=== PATIENT | female | born 1995 | race Caucasian/White ===

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

== ENCOUNTER 2017-02-28 14:46 | Emergency (ER) | payer BC ==
[~2017-02-28] VITALS: Ht 177.8 cm; Wt 56.7 kg
[2017-02-28 15:06] LABS: URINE BLOOD TRACE (Negative); URINE COLOR YELLOW; URINE GLUCOSE-RANDOM* NEGATIVE (Negative); URINE KETONES 2+ (Negative); URINE LEUKOCYTES-REFLEX NEGATIVE (Negative); URINE PROTEIN (DIPSTICK) 1+ (Negative); URINE UROBILINOGEN 0.2 E.U./dl (0.2-1.0)
[2017-02-28 15:07] LABS: ICTOTEST (BILI CONFIRMATORY) Negative (Negative); URINE BILIRUBIN NEGATIVE (Negative)
[2017-02-28 15:14] LABS: HYALINE CASTS 0-3 Few /LPF (None Seen); SQUAMOUS 0-3 Few /LPF (0-3)
[2017-02-28 15:15] LABS: CRYSTALS None Seen /LPF (None Seen); URINE RBC None Seen /HPF (0-2); URINE WBC-REFLEX None Seen /HPF (0-5)
[2017-02-28 15:46] LABS: HEMATOCRIT 42.3 % (37.0-47.0); HEMOGLOBIN 14.6 gm/dL (12.0-15.0); MCH 28.5 pg (26.0-34.0); MCHC 34.5 g/dL (28.0-37.0); MCV 82.5 fL (80.0-100.0); PLATELET COUNT 193 thou/uL (150-400); RBC 5.13 mil/uL (4.20-5.00); RDW 13.4 % (10.5-14.5); WBC 8.8 thou/uL (4.0-11.0)
[2017-02-28 15:47] LABS: MANUAL DIFF YES
[2017-02-28 15:53] LABS: CALCIUM 9.7 mg/dL (8.5-10.1); CREATININE 0.8 mg/dL (0.6-1.0); POTASSIUM 3.4 mmol/L (3.5-5.1)
[2017-02-28 16:07] LABS: ABSOLUTE NEUTROPHILS 7.8 thou/uL (1.4-8.2); TOTAL CELL COUNT 100
[2017-02-28] MEDS ORDERED: PHENERGAN 25 MG25 M1 PO (16:27)
[2017-02-28] MEDS ORDERED: ONDANSETRON HCL4 M2 PO (16:37)
[2017-02-28 17:09] VITALS: BP 106/66
== END 2017-02-28 17:34 | disposition home or self-care (01) ==
LOC: ER 14:46
PROVIDERS: Emergency Medicine; Physician Assistant
DX: J09.X2 Influenza due to identified novel influenza A virus with other respiratory manifestations (principal); E86.9 Volume depletion, unspecified; Z88.2 Allergy status to sulfonamides

== ENCOUNTER 2017-03-15 19:35 | Emergency (ER) | payer BC, SELFPAY ==
[~2017-03-15] VITALS: Ht 177.8 cm; Wt 57.1 kg
[~2017-03-15 19:35] MED LIST changes: -COLACE100 MG PO; -HYDROCODON-ACE1 EAC7 PO; -LUTERA1 EACH PO; -MIRALAX17 GM PO; -OMEPRAZOLE40 MG PO; -PROMS25 WY RECTAL; -PROZAC10 MG PO; -SENOKOT-S1 TA2 PO; -XANAX 0.25 MG0.25 MG PO
[2017-03-15] MEDS ORDERED: PROZAC10 MG PO (19:59)
[2017-03-15] MEDS ORDERED: LUTERA1 EACH PO (20:00)
[2017-03-15 20:21] LABS: ABSOLUTE NEUTROPHILS 3.8 thou/uL (1.4-8.2); BASOPHILS 0.7 % (0.0-2.0); EOSINOPHILS 10.2 % (0.0-3.0); HEMATOCRIT 38.9 % (37.0-47.0); HEMOGLOBIN 13.7 gm/dL (12.0-15.0); LYMPHOCYTES 20.1 % (24.0-44.0); MCH 28.8 pg (26.0-34.0); MCHC 35.3 g/dL (28.0-37.0); MCV 81.7 fL (80.0-100.0); MONOCYTES 5.6 % (1.0-8.0); PLATELET COUNT 275 thou/uL (150-400); POLYS 63.4 % (36.0-66.0); RBC 4.76 mil/uL (4.20-5.00); RDW 13.3 % (10.5-14.5)
[2017-03-15 20:27] LABS: CALCIUM 9.1 mg/dL (8.5-10.1); CREATININE 0.9 mg/dL (0.6-1.0); POTASSIUM 3.5 mmol/L (3.5-5.1)
[2017-03-15 20:33] LABS: ALBUMIN 4.1 g/dL (3.4-5.0); DIRECT BILIRUBIN 0.2 mg/dL (<0.1-0.3); TOTAL BILIRUBIN 1.2 mg/dL (<0.1-1.0); TOTAL PROTEIN 7.4 g/dL (6.4-8.2)
[2017-03-15 20:52] LABS: URINE BILIRUBIN NEGATIVE (Negative); URINE BLOOD NEGATIVE (Negative); URINE CLARITY CLEAR; URINE COLOR YELLOW; URINE GLUCOSE-RANDOM* NEGATIVE (Negative); URINE KETONES TRACE (Negative); URINE LEUKOCYTES NEGATIVE (Negative); URINE NITRITE NEGATIVE (Negative); URINE PROTEIN (DIPSTICK) NEGATIVE (Negative); URINE UROBILINOGEN 0.2 E.U./dl (0.2-1.0)
[2017-03-15] MEDS ORDERED: COLACE100 MG PO (22:55)
[2017-03-15] MEDS ORDERED: PROMS25 WY RECTAL (22:55)
[2017-03-15] MEDS ORDERED: PHENERGAN 25 MG25 M1 PO (22:55)
[2017-03-15 23:18] VITALS: BP 100/57
[2017-04-16] MEDS ORDERED: MIRALAX17 GM PO (12:51)
[2017-04-16] MEDS ORDERED: PROZAC10 MG PO (12:52)
[2017-04-16] MEDS ORDERED: PROMS25 WY RECTAL (12:53)
[2017-04-16] MEDS ORDERED: LUTERA1 EACH PO (12:53)
[2017-04-16] MEDS ORDERED: OMEPRAZOLE40 MG PO (12:54)
[2017-04-16] MEDS ORDERED: ONDANSETRON HCL4 M2 PO (13:12)
[2017-11-11] MEDS ORDERED: XANAX 0.25 MG0.25 MG PO (20:20)
== END 2017-03-15 23:22 | disposition home or self-care (01) ==
LOC: ER 19:35
PROVIDERS: Nurse Practitioner
DX: K59.00 Constipation, unspecified (principal); Q79.6 Ehlers-Danlos syndromes; Z88.2 Allergy status to sulfonamides

== ENCOUNTER → 2017-03-15 | Outpatient (CLI) | payer BC ==
[~2017-03-15] MED LIST: COLACE100 MG PO; HYDROCODON-ACE1 EAC7 PO; LUTERA1 EACH PO; MIRALAX17 GM PO; OMEPRAZOLE40 MG PO; ONDANSETRON HCL4 M2 PO; PHENERGAN 25 MG25 M1 PO; PROMS25 WY RECTAL; PROZAC10 MG PO; SENOKOT-S1 TA2 PO; XANAX 0.25 MG0.25 MG PO
== END ==
LOC: ULTRA 07:14
DX: R10.11 Right upper quadrant pain (principal); R11.0 Nausea

== ENCOUNTER → 2017-03-22 | Outpatient (CLI) | payer BC, SELFPAY ==
[~2017-03-22] MED LIST changes: +COLACE100 MG PO; +HYDROCODON-ACE1 EAC7 PO; +LUTERA1 EACH PO; +MIRALAX17 GM PO; +OMEPRAZOLE40 MG PO; +PROMS25 WY RECTAL; +PROZAC10 MG PO; +SENOKOT-S1 TA2 PO; +XANAX 0.25 MG0.25 MG PO
== END ==
LOC: NUC 07:43
DX: R10.11 Right upper quadrant pain (principal); R11.0 Nausea

== ENCOUNTER 2017-04-13 03:49 | Emergency (ER) | payer BC, SELFPAY ==
[~2017-04-13] VITALS: Ht 177.8 cm; Wt 56.7 kg
[~2017-04-13 03:49] MED LIST changes: -HYDROCODON-ACE1 EAC7 PO; -MIRALAX17 GM PO; -OMEPRAZOLE40 MG PO; -SENOKOT-S1 TA2 PO; -XANAX 0.25 MG0.25 MG PO
[2017-04-13] MEDS ORDERED: PHENERGAN 25 MG25 M1 PO (04:57)
[2017-04-13 05:11] VITALS: BP 122/48
[2017-04-16] MEDS ORDERED: MIRALAX17 GM PO (12:51)
[2017-04-16] MEDS ORDERED: PROZAC10 MG PO (12:52)
[2017-04-16] MEDS ORDERED: PROMS25 WY RECTAL (12:53)
[2017-04-16] MEDS ORDERED: LUTERA1 EACH PO (12:53)
[2017-04-16] MEDS ORDERED: OMEPRAZOLE40 MG PO (12:54)
[2017-04-16] MEDS ORDERED: ONDANSETRON HCL4 M2 PO (13:12)
[2017-11-11] MEDS ORDERED: XANAX 0.25 MG0.25 MG PO (20:20)
== END 2017-04-13 05:12 | disposition home or self-care (01) ==
LOC: ER 03:49
DX: R10.11 Right upper quadrant pain (principal); R11.0 Nausea; R25.1 Tremor, unspecified; R19.7 Diarrhea, unspecified

== ENCOUNTER 2017-04-16 19:44 | Inpatient (IN) | payer BC, SELFPAY ==
[~2017-04-16] VITALS: Ht 177.8 cm; Wt 60.3 kg
--- NOTE | ~2017-04-16 | 2DMMODE ---
[facility] [address] [place] [address] 2 D/M-MODE ECHOCARDIOGRAM Name: KALIN GREER Room #: 206-P ADM IN M.R.#: [id number] Admission: 04/16/17 Attend Phys: Juan Alberto Crooks Discharge: Date of : 89 Date of Service: 04/17/17 0913 Report #: [id number] THIS REPORT FOR: //name// APPROVED REPORT Study performed: 04/17/2017 08:30:18 EXAM: Comprehensive 2D, Doppler, and color-flow Echocardiogram Patient Location: Echo lab Room #: [facility] [place] Status: routine BSA: 1.68 HR: 102 bpm BP: 111/65 mmHg Rhythm: NSR Other Information Study Quality: Adequate Technically limited study due to thin body habitus. Indications Atrial flutter. Ehler Danlos Syndrome 2D Dimensions RVDd: 35.68 mm LVEF(%): 54.13 (>50%) IVSd: 6.87 (7-11mm) LVOT Diam: 19.98 (18-24mm) LVDd: 41.01 mm PWd: 5.79 (7-11mm) Ascending Ao: 25.84 (22-36mm) LVDs: 29.67 (25-40mm) Aortic Root: 27.85 mm Jay's LVEF: 54.13 % Volumes Left Atrial Volume (Systole) Single Plane 4CH: 19.36 mL Aortic Valve AoV Peak Marquis.: 1.38 m/s AO Peak Gr.: 7.60 mmHg LVOT Max P.69 mmHg LVOT Max V: 1.08 m/s LOREN Vmax: 2.46 cm2 Mitral Valve E/A Ratio: 1.1 [facility] [place] [address] 2 D/M-MODE ECHOCARDIOGRAM Name: BLANKET WASHERLMWOODSTOCK Room #: [address] [place] [address] IN ..#: [id number] Admission: 04/16/17 Attend Phys: Juan Alberto Crooks Discharge: Date of : 89 Date of Service: 04/17/17 0913 Report #: [id number] MV Decel. Time: 167.77 ms MV E Max Marquis.: 1.18 m/s MV A Marquis.: 1.08 m/s MV PHT: 48.65 ms IVRT: 41.52 ms Pulmonary Valve PV Peak Marquis.: 1.15 m/s PV Peak Gr.: 5.32 mmHg Pulmonary Vein P Vein S: 0.48 m/s P Vein D: 0.92 m/s P Vein S/D Ratio: 0.52 Tricuspid Valve TR Peak Marquis.: 2.65 m/s RAP Estimate: 5.00 mmHg TR Peak Gr.: 28.13 mmHg PA Pressure: 32.00 mmHg Left Ventricle The left ventricle is normal size. There is normal LV segmental wall motion. There is normal left ventricular wall thickness. Left ventricular systolic function is normal. LVEF is 55%. The left ventricular diastolic function is normal. Right Ventricle The right ventricle is normal size. The right ventricular systolic function is normal. Atria The left atrium size is normal. The right atrium size is normal. Aortic Valve The aortic valve is normal in structure. No aortic regurgitation is present. There is no aortic valvular stenosis. Mitral Valve The mitral valve is normal in structure. There is no mitral valve regurgitation noted. No evidence of mitral valve stenosis. Tricuspid Valve The tricuspid valve is normal in structure. Mild tricuspid regurgitation. Estimated PAP is 30-35mmHg. Pulmonic Valve [facility] [address] [place] [address] 2 D/M-MODE ECHOCARDIOGRAM Name: KALIN GREER Room #: 206-P [facility] IN M.R.#: [id number] Admission: 04/16/17 Attend Phys: Juan Alberto Crooks Discharge: Date of : 89 Date of Service: 04/17/17 0913 Report #: [id number] The pulmonary valve is normal in structure. Trace pulmonic regurgitation. Great Vessels The aortic root is normal in size. The ascending aorta is normal in size. IVC is normal in size and collapses >50% with inspiration. Pericardium There is no pericardial effusion. <Conclusion> 1. Normal echocardiogram with Doppler EF 55% 2. Pericardial effusion was absent <ELECTRONICALLY SIGNED> By: Yousif Carr MD, [facility] 04/17/17912 2 2 Yousif Carr MD, [facility] /INF
--- NOTE | ~2017-04-16 | S ---
[facility] [place] [address] SURGICAL PATH RPT PROCEDURE Name: MYESHA ARREDONDO Room #: 206-P ADM IN M.R.#: [id number] Admission: 04/16/17 Date of : 89 Discharge: Report #: [id number] Path Case #: [id number] PATHOLOGY REPORT COLLECTION DATE: 04/18/2017 RECEIVED DATE: 04/18/2017 SUBMITTING PHYS: Dr. Korey Emmanuel, OTHER PHYS: Dr. Juan Alberto Chase SPECIMEN(S) RECEIVED: A.Gallbladder * * * * * * * * * * * * FINAL DIAGNOSIS: Gallbladder, cholecystectomy: - Mild chronic cholecystitis. (IUV; 04/19/17) PATHOLOGIST: Laurence Garza M.D. REPORT ELECTRONICALLY SIGNED BY: Laurence Garza M.D. DATE/TIME: 04/19/2017 12:14 * * * * * * * * * * * * GROSS PATHOLOGY: Received in formalin labeled "Myesha Arredondo gallbladder," is a 6.5 x 3.0 x 0.8 cm, previously opened gallbladder with green-cabrera and smooth serosal surfaces. Opening the gallbladder reveals a brown-cabrera and velvety mucosa and an average wall thickness of 0.1 cm. Calculi are not present and no masses are noted grossly. Securities Teller sections from the body and fundus are submitted along with the proximal margin in cassette A1. (SDY; 04/18/2017) CLINICAL HISTORY: Biliary dyskinesia INITIAL CPT CODE(S): A; 85496 Professional services performed by [facility] at [facility] [address], [place] [address] Technical services performed by [facility] at [address] [place] [id number]. [facility] [address] [place] [address] SURGICAL PATH RPT PROCEDURE Name: MYESHA ARREDONDO Room #: 206-P ADM IN M.R.#: [id number] Admission: 04/16/17 Date of : 89 Discharge: Report #: [id number] Path Case #: [id number] [facility] [address] [address] PHONE: [phone] DIRECTOR: Quirino Moon M.D. * * * END OF REPORT * * *
[~2017-04-16 19:44] MED LIST changes: +MIRALAX17 GM PO; +OMEPRAZOLE40 MG PO
[2017-04-16 19:52] VITALS: BP 127/89
[2017-04-16 20:07] LABS: URINE BILIRUBIN 1+ (Negative); URINE BLOOD NEGATIVE (Negative); URINE CLARITY CLEAR; URINE COLOR YELLOW; URINE GLUCOSE-RANDOM* NEGATIVE (Negative); URINE KETONES 3+ (Negative); URINE LEUKOCYTES-REFLEX NEGATIVE (Negative); URINE NITRITE-REFLEX NEGATIVE (Negative); URINE PROTEIN (DIPSTICK) NEGATIVE (Negative); URINE UROBILINOGEN 0.2 E.U./dl (0.2-1.0)
[2017-04-16 20:09] LABS: ICTOTEST (BILI CONFIRMATORY) Positive (Negative)
[2017-04-16 20:15] LABS: URINE REDUCING SUBSTANCE NEGATIVE
[2017-04-16 21:19] LABS: BASOPHILS 0.2 % (0.0-2.0); EOSINOPHILS 0.4 % (0.0-3.0); HEMATOCRIT 51.5 % (37.0-47.0); HEMOGLOBIN 17.6 gm/dL (12.0-15.0); LYMPHOCYTES 9.2 % (24.0-44.0); MCH 28.4 pg (26.0-34.0); MCHC 34.1 g/dL (28.0-37.0); MCV 83.3 fL (80.0-100.0); MONOCYTES 2.7 % (1.0-8.0); PLATELET COUNT 242 thou/uL (150-400); POLYS 87.5 % (36.0-66.0); RBC 6.18 mil/uL (4.20-5.00); RDW 13.7 % (10.5-14.5); WBC 10.3 thou/uL (4.0-11.0)
[2017-04-16 21:29] LABS: CALCIUM 11.5 mg/dL (8.5-10.1); CREATININE 1.2 mg/dL (0.6-1.0); POTASSIUM 3.7 mmol/L (3.5-5.1)
[2017-04-16 21:35] LABS: ALBUMIN 5.6 g/dL (3.4-5.0); TOTAL BILIRUBIN 3.3 mg/dL (<0.1-1.0); TOTAL PROTEIN 9.7 g/dL (6.4-8.2)
[2017-04-16 23:07] LABS: AMP/METHAMP Negative (Negative); BARBITURATES Negative (Negative); BENZODIAZEPINES Negative (Negative); COCAINE Negative (Negative); METHADONE Negative (Negative); OPIATES Negative (Negative); PCP Negative (Negative)
[2017-04-16 23:56] LABS: ALBUMIN 5.5 g/dL (3.4-5.0); DIRECT BILIRUBIN 0.4 mg/dL (<0.1-0.3); TOTAL BILIRUBIN 3.2 mg/dL (<0.1-1.0); TOTAL PROTEIN 8.8 g/dL (6.4-8.2)
[2017-04-17] VITALS (7 sets, daily range): BP systolic 103–127; BP diastolic 62–73
[2017-04-17 05:07] LABS: MCH 28.5 pg (26.0-34.0); MCHC 34.5 g/dL (28.0-37.0); MCV 82.7 fL (80.0-100.0); RBC 4.71 mil/uL (4.20-5.00); RDW 13.7 % (10.5-14.5); WBC 6.1 thou/uL (4.0-11.0)
[2017-04-17 05:11] LABS: HEMOGLOBIN 13.5 gm/dL (12.0-15.0)
[2017-04-17 05:26] LABS: ALBUMIN 3.8 g/dL (3.4-5.0); POTASSIUM 3.6 mmol/L (3.5-5.1); TOTAL BILIRUBIN 2.7 mg/dL (<0.1-1.0); TOTAL PROTEIN 6.7 g/dL (6.4-8.2)
[2017-04-17 05:33] LABS: CALCIUM 8.6 mg/dL (8.5-10.1)
[2017-04-18] VITALS (10 sets, daily range): BP systolic 110–131; BP diastolic 68–89
[2017-04-19] VITALS (7 sets, daily range): BP systolic 105–134; BP diastolic 59–80
[2017-04-19 01:12] LABS: URINE BILIRUBIN NEGATIVE (Negative); URINE BLOOD 1+ (Negative); URINE CLARITY CLEAR; URINE COLOR YELLOW; URINE GLUCOSE-RANDOM* NEGATIVE (Negative); URINE KETONES 3+ (Negative); URINE LEUKOCYTES-REFLEX NEGATIVE (Negative); URINE NITRITE-REFLEX NEGATIVE (Negative); URINE PROTEIN (DIPSTICK) NEGATIVE (Negative); URINE SPECIFIC GRAVITY 1.015 (1.005-1.035); URINE UROBILINOGEN 0.2 E.U./dl (0.2-1.0)
[2017-04-19 01:27] LABS: URINE REDUCING SUBSTANCE NEGATIVE
[2017-04-19 01:30] LABS: BACTERIA-REFLEX >30 Many /HPF (None Seen); SQUAMOUS >10 Many /LPF (0-3); URINE RBC 0-2 Rare /HPF (0-2); URINE WBC-REFLEX 0-5 Rare /HPF (0-5)
[2017-04-19 01:31] LABS: CASTS None Seen /LPF (None Seen); CRYSTALS None Seen /LPF (None Seen)
[2017-04-19] MEDS ORDERED: HYDROCODON-ACE1 EAC7 PO (07:48)
[2017-04-20 04:00] VITALS: BP 109/58
[2017-04-20 07:40] VITALS: BP 111/61
[2017-04-20 07:42] VITALS: BP 111/61
[2017-04-20 12:12] VITALS: BP 125/83
[2017-04-20] MEDS ORDERED: SENOKOT-S1 TA2 PO (13:52)
[2017-04-20 13:55] VITALS: BP 111/61
[2017-04-20 16:54] VITALS: BP 111/61
[2017-11-11] MEDS ORDERED: XANAX 0.25 MG0.25 MG PO (20:20)
== END 2017-04-20 14:48 | disposition home or self-care (01) | DRG 418 ==
LOC: ER 19:44 → 2N 23:59 → EROBS 23:59 → 2N 04-17 00:58
PROVIDERS: Emergency Medicine; Hospitalist; Physician Assistant
PROC: BF121ZZ Fluoroscopy of Gallbladder using Low Osmolar Contrast (ICD-10-PCS; principal; 2017-04-18)
PROC: 0FT44ZZ Resection of Gallbladder, Percutaneous Endoscopic Approach (ICD-10-PCS; principal; 2017-04-18)
DX: K82.8 Other specified diseases of gallbladder (principal); I48.92 Unspecified atrial flutter; N17.9 Acute kidney failure, unspecified; F32.9 Major depressive disorder, single episode, unspecified; K21.9 Gastro-esophageal reflux disease without esophagitis; R00.0 Tachycardia, unspecified; E86.0 Dehydration; Z88.2 Allergy status to sulfonamides; Z79.899 Other long term (current) drug therapy
CPT/HCPCS: 10081; 50010; 50101; 50249; 50411; 50555; 50558; 51489; 51975; 52265; 53307; 53310; 54022; 54118; 55245; 55317; 56462; 56525; 56526; 62110; 62900; 70005

== ENCOUNTER → 2017-05-16 | Outpatient (CLI) | payer BC ==
[~2017-05-16] MED LIST changes: +HYDROCODON-ACE1 EAC7 PO; +SENOKOT-S1 TA2 PO; +XANAX 0.25 MG0.25 MG PO
== END ==
LOC: ULTRA 08:52
DX: R10.11 Right upper quadrant pain (principal)

== ENCOUNTER → 2017-08-29 | Outpatient (CLI) | payer BC ==
[~2017-08-29] MED LIST changes: -XANAX 0.25 MG0.25 MG PO
== END ==
LOC: NUC 07:35
DX: K59.00 Constipation, unspecified (principal); R11.0 Nausea; R10.9 Unspecified abdominal pain